=== PATIENT | male | born 1975 ===

== ENCOUNTER 2017-09-05 14:20 | Observation (INO) | payer MEDICAID, OTHER ==
--- NOTE | 2017-09-05 14:36 | ED PDOC ---
Arrival/HPI - General Time Seen by Provider: 09/05/17 14:24 Historian: Patient - History of Present Illness Narrative History of Present Illness (Text): 09/05/17 14:36 This 42 yo male with pmh ESRD, DM 2, HTN, obesity, on Hemodialysis, presents to this ED c/o right lower back pain x 1 day. Patient denies trauma, weakness, paresthesias, GI/ incontinence, saddle anesthesia, urinary retention, fever, sob, cp, rectal bleeding, or abnormal gait. Last Hemodialysis was early today Time/Duration: Other (see hpi) Context: Home Past Medical History - Provider Review Nursing Documentation Reviewed: Yes Family/Social History - Physician Review Nursing Documentation Reviewed: Yes Family/Social History: Other (noncontributory) Allergies/Home Meds Allergies/Adverse Reactions: Allergies Iodinated Contrast- Oral and IV Dye Allergy (Verified 09/05/17 14:53) ANGIOEDEMA Home Medications: Home Meds Medication Instructions Recorded Confirmed Atorvastatin [Lipitor] 40 mg PO DAILY 09/05/17 09/05/17 B Complex W-C No.20/Folic Acid 1 mg PO DAILY 09/05/17 09/05/17 [Virt-Caps Softgel] Calcitriol 0.25 mcg PO DAILY 09/05/17 09/05/17 Carvedilol [Coreg] 25 mg PO BID 09/05/17 09/05/17 Furosemide [Lasix] 80 mg PO DAILY 09/05/17 09/05/17 Hydralazine HCl 100 mg PO TID 09/05/17 09/05/17 Linagliptin [Tradjenta] 5 mg PO DAILY 09/05/17 09/05/17 amLODIPine [Norvasc] 10 mg PO DAILY 09/05/17 09/05/17 Review of Systems - Review of Systems Constitutional: Normal. absent: Fatigue, Weight Change, Fevers Eyes: Normal ENT: Normal Respiratory: Normal. absent: SOB, Cough, Sputum, Wheezing Cardiovascular: Normal. absent: Chest Pain, Palpitations Gastrointestinal: Normal. absent: Abdominal Pain, Nausea, Vomiting Genitourinary Male: Normal Musculoskeletal: Back Pain Skin: Normal. absent: Rash Neurological: Normal. absent: Headache, Dizziness, Focal Weakness, Gait Changes , Speech Changes, Facial Droop Endocrine: Normal Hemo/Lymphatic: Normal Psychiatric: Normal Physical Exam Vital Signs Temp Pulse Resp BP Pulse Ox 09/05/17 16:20 72 18 123/78 98 09/05/17 14:53 98 F 81 18 123/67 98 Temperature: Afebrile Blood Pressure: Normal Pulse: Regular Respiratory Rate: Normal Appearance: Positive for: Well-Appearing, Non-Toxic, Comfortable Pain Distress: None Mental Status: Positive for: Alert and Oriented X 3 - Systems Exam Head: Present: Atraumatic, Normocephalic Pupils: Present: PERRL Extroacular Muscles: Present: EOMI Conjunctiva: Present: Normal Mouth: Present: Moist Mucous Membranes Neck: Present: Normal Range of Motion Respiratory/Chest: Present: Clear to Auscultation, Good Air Exchange, Tender to Palpation. No: Respiratory Distress, Accessory Muscle Use Cardiovascular: Present: Regular Rate and Rhythm, Normal S1, S2. No: Murmurs Abdomen: Present: Normal Bowel Sounds. No: Tenderness, Distention, Peritoneal Signs Back: Present: Normal Inspection Upper Extremity: Present: Normal Inspection. No: Cyanosis, Edema Lower Extremity: Present: Normal Inspection. No: Edema Neurological: Present: GCS=15, CN II-XII Intact, Speech Normal Skin: Present: Warm, Dry, Normal Color. No: Rashes Psychiatric: Present: Alert, Oriented x 3, Normal Insight, Normal Concentration Medical Decision Making ED Course and Treatment: 09/05/17 20:53 I spoke with Merchant Tailor Nakul. I reviewed case with him for intractable lower back pain. He stated Dr. Villalobos is next. 09/05/17 20:[address] Villalobos regarding patient reporting lower back pain, labs, and CT scan result. I told Dr. Villalobos patient continues with back pain despite pain medication. I recommended observation for intractable back pain. Dr. Villalobos agreed with plan for observation. Patient agreed with plan for observation. Re-evaluation Time: 20:54 Reassessment Condition: Re-examined, Improving,but remains with symptoms - Lab Interpretations Lab Results: 09/05/17 20:20 09/05/17 20:20 Lab Results 09/05/17 20:20: Sodium 139, Potassium 4.4, Chloride 94 L, Carbon Dioxide 33, Anion Gap 17, BUN 30 H, Creatinine 3.9 H, Est GFR ( Amer) 20, Est GFR ( Non-Af Amer) 17, Random Glucose 167 H, Calcium 9.3, Total Bilirubin 0.4, AST 29 , ALT 26, Alkaline Phosphatase 107, Total Protein 7.8, Albumin 4.2, Globulin 3.7 , Albumin/Globulin Ratio 1.1 09/05/17 20:20: WBC 13.5 H, RBC 3.14 L, Hgb 9.5 L, Hct 30.3 L, MCV 96.5, MCH 30.3, MCHC 31.4, RDW 15.9 H, Plt Count 318, MPV 10.4, Gran % 62.0, Lymph % (Auto ) 23.0, [place] % (Auto) 9.2 H, Eos % (Auto) 4.9, Baso % (Auto) 0.9, Gran # 8.37 H , Lymph # (Auto) 3.1, [place] # (Auto) 1.2 H, Eos # (Auto) 0.7, Baso # (Auto) 0.12 I have reviewed the lab results: Yes Interpretation: Abnormal lab values - RAD Interpretation Narrative RAD Interpretations (Text): 09/05/17 16:38 PROCEDURE: CT Lumbar Spine without contrast FINDINGS: VERTEBRAE: Unremarkable. No fracture. Normal alignment. DISCS/SPINAL CANAL/NEURAL FORAMINA: L1-2: Chaim at the spinal canal without canal stenosis primarily a function of hypertrophy of ligamentum flavum posterior. L2-3: Canal stenosis primarily a function of annular bulge, hypertrophy of the ligamentum flavum posterior element hypertrophic degenerative. L3-4: Spinal stenosis without focal herniated disc. L4-5: Spinal stenosis without focal herniated disc. L5-S1: No focal abnormalities. Spondylolysis without evidence of spondylolisthesis. PARASPINAL SOFT TISSUES: Unremarkable. OTHER FINDINGS: None. IMPRESSION: Spina canal stenosis L3-4, L4-5 and to lesser L2-3. . Additional benign and/or incidental findings described above. 09/05/17 16:38 Chest PA and lateral FINDINGS: LUNGS: No active pulmonary disease. PLEURA: No significant pleural effusion identified. No pneumothorax apparent. CARDIOVASCULAR: Normal. OSSEOUS STRUCTURES: No significant abnormalities. VISUALIZED UPPER ABDOMEN: Normal. OTHER FINDINGS: None. IMPRESSION: No active disease. Radiology Orders: 09/05/17 15:12 LUMBAR SPINE W/O CONTRAST [CT] Stat 09/05/17 15:21 CHEST TWO VIEWS (PA/LAT) [RAD] Stat 09/05/17 20:23 CHEST PORTABLE [RAD] Stat - EKG Interpretation Interpreted by ED Physician: Yes (NSR @ 69bpm. LVH. No ST changes) Type: 12 lead EKG Comparison: No previous EKG avail. - Medication Orders Current Medication Orders: Discontinued Medications Hydromorphone HCl (Dilaudid) 1 mg IVP STAT STA Stop: 09/05/17 18:25 Last Admin: 09/05/17 20:25 Dose: 1 mg MAR Pain Assessment Document 09/05/17 20:25 CNR (Rec: 09/05/17 20:25 CNR [id number]) Pain Reassessment Is this a pain reassessment? Yes Location Pain Location Body Site Back Description Description Constant IVP Administration Document 09/05/17 20:25 CNR (Rec: 09/05/17 20:25 CNR [id number]) Charges for Administration # of IVP Administrations 1 Ondansetron HCl (Zofran Odt) 4 mg PO STAT STA Stop: 09/05/17 15:14 Last Admin: 09/05/17 15:26 Dose: 4 mg Oxycodone/Acetaminophen (Percocet 5/325 Mg Tab) 1 tab PO STAT STA Stop: 09/05/17 15:14 Last Admin: 09/05/17 15:26 Dose: 1 tab MAR Pain Assessment Document 09/05/17 15:26 ETCHER HAND (Rec: 09/05/17 15:27 ETCHER HAND [id number]) Pain Reassessment Is this a pain reassessment? No Re-Assess: MAR Pain Assessment Document 09/05/17 16:26 ETCHER HAND (Rec: 09/05/17 16:34 ETCHER HAND [id number]) Pain Reassessment Is this a pain reassessment? Yes Presence of Pain Presence of Pain Yes Oxycodone/Acetaminophen (Percocet 5/325 Mg Tab) 1 tab PO STAT STA Stop: 09/05/17 16:37 Last Admin: 09/05/17 16:51 Dose: 1 tab MAR Pain Assessment Document 09/05/17 16:51 ETCHER HAND (Rec: 09/05/17 16:51 ETCHER HAND [id number]) Pain Reassessment Is this a pain reassessment? Yes Presence of Pain Presence of Pain Yes Disposition/Present on Arrival - Present on Arrival Any Indicators Present on Arrival: No History of DVT/PE: No History of Uncontrolled Diabetes: No Urinary Catheter: No History of Decub. Ulcer: No - Disposition Have Diagnosis and Disposition been Completed?: Yes Diagnosis: Intractable back pain Disposition: HOSPITALIZED Disposition Time: 21:00 Patient Problems: Current Active Problems Problem Status Onset Intractable back pain Acute Condition: STABLE Referrals: [facility] Bill Bang, [Non-Staff] - Follow up with primary
[2017-09-05] MEDS ORDERED: Oxycodone/Acetaminophen 5/325 mg Tab PO STA ×2 (15:13→16:36)
--- NOTE | 2017-09-05 16:14 | CT ---
PROCEDURE: CT Lumbar Spine without contrast HISTORY: Back Pain. No history of recent/ related trauma provided COMPARISON: None. TECHNIQUE: Axial computed tomography images were obtained of the lumbar spine without the use of intravenous contrast. Coronal and sagittal reformatted images were created and reviewed. Radiation dose: Total exam DLP = 1442.83 mGy-cm. This CT exam was performed using one or more of the following dose reduction techniques: Automated exposure control, adjustment of the mA and/or kV according to patient size, and/or use of iterative reconstruction technique. FINDINGS: VERTEBRAE: Unremarkable. No fracture. Normal alignment. DISCS/SPINAL CANAL/NEURAL FORAMINA: L1-2: Chaim at the spinal canal without canal stenosis primarily a function of hypertrophy of ligamentum flavum posterior. L2-3: Canal stenosis primarily a function of annular bulge, hypertrophy of the ligamentum flavum posterior element hypertrophic degenerative. L3-4: Spinal stenosis without focal herniated disc. L4-5: Spinal stenosis without focal herniated disc. L5-S1: No focal abnormalities. Spondylolysis without evidence of spondylolisthesis. PARASPINAL SOFT TISSUES: Unremarkable. OTHER FINDINGS: None. IMPRESSION: Spina canal stenosis L3-4, L4-5 and to lesser L2-3. . Additional benign and/or incidental findings described above.
--- NOTE | 2017-09-05 16:36 | RAD ---
HISTORY: cough COMPARISON: No prior. TECHNIQUE: Chest PA and lateral FINDINGS: LUNGS: No active pulmonary disease. PLEURA: No significant pleural effusion identified. No pneumothorax apparent. CARDIOVASCULAR: Normal. OSSEOUS STRUCTURES: No significant abnormalities. VISUALIZED UPPER ABDOMEN: Normal. OTHER FINDINGS: None. IMPRESSION: No active disease.
[2017-09-05] MEDS ORDERED: HYDROmorphone 1 mg/ml ISec IVP STA (18:24)
[2017-09-05 20:26] LABS: BASO # 0.12 K/mm3 (0.0-2.0); BASO % 0.9 % (0.0-3.0); EOS # 0.7 (0.0-0.7); EOS % 4.9 % (1.5-5.0); GRAN # 8.37 (1.4-6.5); HEMOGLOBIN 9.5 g/dL (14.0-18.0); LYMPH # 3.1 (1.2-3.4); MEAN CELL VOLUME 96.5 fl (80.0-105.0); MEAN CORPUSCULAR HEMOGLOBIN 30.3 pg (25.0-35.0); MEAN CORPUSCULAR HGB CONC 31.4 g/dl (31.0-37.0); MEAN PLATELET VOLUME 10.4 fl (7.0-11.0); MONO # 1.2 (0.1-0.6); MONO % 9.2 % (1.0-6.0); RBC 3.14 10^6/uL (3.5-6.1); RED CELL DISTRIBUTION WIDTH 15.9 % (11.5-14.5); WHITE BLOOD COUNT 13.5 10^3/ul (4.5-11.0)
[2017-09-05 20:36] LABS: ALB/GLOB RATIO 1.1 (1.1-1.8); ALBUMIN 4.2 g/dL (3.0-4.8); CALCIUM 9.3 mg/dL (8.4-10.5)
[2017-09-05] MEDS ORDERED: Oxycodone/Acetaminophen 5/325 mg Tab PO PRN (21:47)
[2017-09-05] MEDS ORDERED: Morphine 4 mg/ml ISec IVP PRN (21:47)
--- NOTE | 2017-09-05 21:59 | CP.PCM.HP ---
<Luis Miguel Hollis - Last Filed: 09/06/17 00:44> History of Present Illness - History of Present Illness History of Present Illness: CC: Low back pain Pt is a 42 yo M with PMH of ESRD on HD (MWF), glaucoma, right eye blindness, HTN , DM, and CHF presents to [facility] due to 1 day history of lower back pain. Pt states that he was at dialysis earlier today when mild back pain started. Pt finished HD, went home, and went to bed. When he tried to get out of bad he experienced sharp, "pounding" pain in his lower back. Pt states that he could not stand or walk due to the pain. Deep breaths also aggravated his lower back. Pt denies any bowel or bladder incontinence. Pt states that strength and sensation in his lower extremities and intact. Pt states that he had one instance in 2006 where he had similar back pain, but that episode was transient. Pt denies any recent injuries or illnesses. Pt denies CP, SOB, n/v/d , abdominal pain, fever, chills, YEE, or dizziness. PMH: ESRD on HD (MWF), glaucoma, right eye blindness, HTN, DM, and CHF Surg: Right eye shunt, left AV fistula, left retinal reattachment, cardiac catherization All: iodine, shellfish FHx: DM, HTN SH: Denied tobacco, EtOH, and illicit drug use PMD: Raymundo Present on Admission - Present on Admission Any Indicators Present on Admission: No Review of Systems - Review of Systems Review of Systems: 12 point ROS reviewed and is negative other than what is stated in HPI. Past Patient History - Past Social History Smoking Status: Never Smoked - CARDIAC Hx Cardiac Disorders: Yes Hx Hypertension: Yes - HEENT Hx HEENT Problems: Yes Hx Glaucoma: Yes - RENAL Hx Chronic Kidney Disease: Yes Hx Dialysis: Yes Type of Dialysis Access: fistula Date of Last Dialysis Treatment: 09/05/17 - ENDOCRINE/METABOLIC Hx Endocrine Disorders: Yes Hx Diabetes Mellitus Type 2: Yes - PSYCHIATRIC Hx Substance Use: No - SURGICAL HISTORY Hx Surgeries: Yes Hx Eye Surgery: Yes (right eye) Other/Comment: left arm fistula - ANESTHESIA Hx Anesthesia: Yes Hx Anesthesia Reactions: No Hx Malignant Hyperthermia: No Meds Home Medications: Home Medication List Medication Instructions Recorded Confirmed Type Cyclobenzaprine [Flexeril] 5 mg PO TID #15 tab 09/07/17 Rx Lidocaine 5% [Lidoderm] 1 ea TD DAILY #3 patch 09/07/17 Rx Allergies/Adverse Reactions: Allergies Allergy/AdvReac Type Severity Reaction Status Date / Time Iodinated Contrast- Oral and Allergy ANGIOEDEMA Verified 09/05/17 14:53 IV Dye shellfish derived Allergy RASH Verified 09/06/17 19:04 Physical Exam - Constitutional Appears: No Acute Distress - Eye Exam Eye Exam: Normal appearance Additional comments: left ptosis, crusting - ENT Exam ENT Exam: Normal Exam - Neck Exam Neck exam: Positive for: Normal Inspection - Respiratory Exam Respiratory Exam: Clear to Auscultation Bilateral. absent: Rales, Rhonchi, Wheezes - Cardiovascular Exam Cardiovascular Exam: RRR, +S1, +S2. absent: Diastolic murmur, Gallop, Rubs, Systolic Murmur - GI/Abdominal Exam GI & Abdominal Exam: Soft. absent: Distended, Guarding, Rebound, Tenderness - Extremities Exam Extremities exam: Positive for: normal inspection - Back Exam Back exam: muscle spasm (lumbar), paraspinal tenderness (lumbar). absent: vertebral tenderness - Neurological Exam Neurological exam: Alert, CN II-XII Intact, Oriented x3 Additional comments: positive straight leg raise b/l, positive lasegue b/l; LE strength 5/5, sensation intact - Psychiatric Exam Psychiatric exam: Normal Affect, Normal Mood - Skin Skin Exam: Dry, Intact, Normal Color, Warm Results - Vital Signs Recent Vital Signs: Last Vital Signs Temp 98 F 09/05/17 14:53 Pulse 72 09/05/17 16:20 Resp 18 09/05/17 16:20 BP 123/78 09/05/17 16:20 Pulse Ox 98 09/05/17 16:20 - Labs Result Diagrams: 09/05/17 20:20 09/05/17 20:20 Labs: Laboratory Results - last 24 hr 09/05/17 09/05/17 20:20 20:20 WBC 13.5 H RBC 3.14 L Hgb 9.5 L Hct 30.3 L MCV 96.5 MCH 30.3 MCHC 31.4 RDW 15.9 H Plt Count 318 MPV 10.4 Gran % 62.0 Lymph % (Auto) 23.0 [place] % (Auto) 9.2 H Eos % (Auto) 4.9 Baso % (Auto) 0.9 Gran # 8.37 H Lymph # (Auto) 3.1 [place] # (Auto) 1.2 H Eos # (Auto) 0.7 Baso # (Auto) 0.12 Sodium 139 Potassium 4.4 Chloride 94 L Carbon Dioxide 33 Anion Gap 17 BUN 30 H Creatinine 3.9 H Est GFR ( Amer) 20 Est GFR (Non-Af Amer) 17 Random Glucose 167 H Calcium 9.3 Total Bilirubin 0.4 AST 29 ALT 26 Alkaline Phosphatase 107 Total Protein 7.8 Albumin 4.2 Globulin 3.7 Albumin/Globulin Ratio 1.1 Assessment & Plan - Assessment and Plan (Free Text) Assessment: 42 yo M with PMH of ESRD on HD (MWF), glaucoma, right eye blindness, HTN, DM, and CHF admitted for intractable lower back pain. Plan: 1. Intractable lower back pain - Lumbar CT shows spinal canal stenosis L2-3, L3-4, L4-5 - Tylenol, Percocet, Morphine, Zofran prn - Flexeril prn 2. ESRD - Cr 3.9 - Electrolytes WNL - HD MWF - Cont to monitor 3. HTN - Norvasc - Hydralazine 4. DM - Linagliptin - Accucheck ACHS 5. H/o CHF - Coreg, Lasix GI/DVT PPx - Pepcid - SCDs Pt seen and discussed in detail with Dr. Villalobos. Andreas Hollis, PGY1 <Lula Villalobos - Last Filed: 09/08/17 06:42> Results - Vital Signs Recent Vital Signs: Last Vital Signs Temp 98.0 F 09/06/17 01:12 Pulse 70 09/06/17 01:12 Resp 18 09/06/17 01:12 BP 123/65 09/06/17 01:12 Pulse Ox 95 09/05/17 20:00 - Labs Result Diagrams: 09/07/17 08:00 09/07/17 08:00 Attending/Attestation - Attestation I have personally seen and examined this patient.: Yes I have fully participated in the care of the patient.: Yes I have reviewed all pertinent clinical information: Yes Notes (Text): 09/06/17 05:38 Patient was seen when he was in bed # 20 in the ER . Agree with history, physical examination, assessment and plan.
[2017-09-06 06:31] LABS: MEAN CELL VOLUME 95.7 fl (80.0-105.0); MEAN CORPUSCULAR HEMOGLOBIN 29.9 pg (25.0-35.0); MEAN CORPUSCULAR HGB CONC 31.3 g/dl (31.0-37.0); MEAN PLATELET VOLUME 10.2 fl (7.0-11.0); RBC 3.01 10^6/uL (3.5-6.1); RED CELL DISTRIBUTION WIDTH 15.9 % (11.5-14.5); WHITE BLOOD COUNT 12.7 10^3/ul (4.5-11.0)
[2017-09-06 07:08] LABS: CALCIUM 9.1 mg/dL (8.4-10.5)
--- NOTE | 2017-09-06 08:19 | RAD ---
HISTORY: admission COMPARISON: Earlier same day FINDINGS: LUNGS: No active pulmonary disease. PLEURA: No significant pleural effusion identified, no pneumothorax apparent. CARDIOVASCULAR: Mild to moderate cardiomegaly. OSSEOUS STRUCTURES: No significant abnormalities. VISUALIZED UPPER ABDOMEN: Normal. OTHER FINDINGS: None. IMPRESSION: No active disease.
[2017-09-06] MEDS: Multivitamin With Minerals Tab PO SCH (09:41)
[2017-09-06] MEDS: Linagliptin [Tradjenta] 5 MG (HOME MED) PO SCH (10:39)
[2017-09-06 11:03] VITALS: BMI 40.1
[2017-09-06] MEDS: Insulin Reg-MEDIUM-Coverage SC SCH ×3 (12:39→22:03)
[2017-09-06 17:32] VITALS: O2SAT 97
[2017-09-06] MEDS: Lidocaine 5% Patch TD SCH (17:44)
--- NOTE | 2017-09-06 18:37 | CARD ---
APPROVED REPORT EKG Measurement Heart [id number] <Conclusion> Normal sinus rhythm Left ventricular hypertrophy with QRS widening Cannot rule out Septal infarct, age undetermined Abnormal ECG
[2017-09-07] MEDS ORDERED: Doxercalciferol 4 mcg/2 ml Inj IVP ONE (06:46)
[2017-09-07] MEDS ORDERED: Darbepoetin Alfa 40 mcg/ml Inj IVP ONE (06:47)
[2017-09-07 07:27] VITALS: PULSE 75; RESP 18; TEMP 98.4
[2017-09-07] MEDS: Insulin Reg-MEDIUM-Coverage SC SCH ×2 (08:11→12:56)
[2017-09-07 08:28] LABS: HEMOGLOBIN 8.8 g/dL (14.0-18.0); MEAN CELL VOLUME 92.8 fl (80.0-105.0); MEAN CORPUSCULAR HEMOGLOBIN 30.3 pg (25.0-35.0); MEAN CORPUSCULAR HGB CONC 32.7 g/dl (31.0-37.0); MEAN PLATELET VOLUME 10.6 fl (7.0-11.0); RBC 2.9 10^6/uL (3.5-6.1); RED CELL DISTRIBUTION WIDTH 15.6 % (11.5-14.5); WHITE BLOOD COUNT 12.6 10^3/ul (4.5-11.0)
[2017-09-07 08:35] LABS: ALB/GLOB RATIO 1.2 (1.1-1.8); ALBUMIN 3.8 g/dL (3.0-4.8); CALCIUM 8.7 mg/dL (8.4-10.5)
--- NOTE | 2017-09-07 10:25 | CP.PCM.CON ---
History of Present Illness - History of Present Illness History of Present Illness: pt is seen and examined, full consult is dictated #[id number] seen in hd, uf goal is 5 lit 1.esrd 2.anemia 3.htn 4.dm, 5.lower back pain sec to spinal stenosis Past Patient History - Past Social History Smoking Status: Never Smoked - CARDIAC Hx Cardiac Disorders: Yes Hx Hypertension: Yes - PULMONARY Hx Respiratory Disorders: No - NEUROLOGICAL Hx Neurological Disorder: No - HEENT Hx HEENT Problems: Yes Hx Glaucoma: Yes - RENAL Hx Chronic Kidney Disease: Yes Hx Dialysis: Yes Type of Dialysis Access: fistula Date of Last Dialysis Treatment: 09/05/17 - ENDOCRINE/METABOLIC Hx Diabetes Mellitus Type 2: Yes - HEMATOLOGICAL/ONCOLOGICAL Hx Blood Disorders: Yes Hx Anemia: Yes - INTEGUMENTARY Hx Dermatological Problems: No - MUSCULOSKELETAL/RHEUMATOLOGICAL Hx Falls: Yes - GASTROINTESTINAL Hx Gastrointestinal Disorders: No - GENITOURINARY/GYNECOLOGICAL Hx Genitourinary Disorders: No - PSYCHIATRIC Hx Substance Use: No - SURGICAL HISTORY Hx Surgeries: Yes Hx Eye Surgery: Yes (right eye) Other/Comment: left arm fistula - ANESTHESIA Hx Anesthesia: Yes Hx Anesthesia Reactions: No Hx Malignant Hyperthermia: No Meds Home Medications: Home Medication List Medication Instructions Recorded Confirmed Type Cyclobenzaprine [Flexeril] 5 mg PO TID #15 tab 09/07/17 Rx Lidocaine 5% [Lidoderm] 1 ea TD DAILY #3 patch 09/07/17 Rx Allergies/Adverse Reactions: Allergies Allergy/AdvReac Type Severity Reaction Status Date / Time Iodinated Contrast- Oral and Allergy ANGIOEDEMA Verified 09/05/17 14:53 IV Dye shellfish derived Allergy RASH Verified 09/06/17 19:04 - Medications Medications: Current Medications Acetaminophen (Tylenol 325mg Tab) 650 mg PO Q6H PRN PRN Reason: Pain, Mild (1-3) Amlodipine Besylate (Norvasc) [address] [facility] Last Admin: 09/06/17 09:41 Dose: 10 mg Atorvastatin Calcium (Lipitor) [address] [facility] Last Admin: 09/06/17 09:41 Dose: 40 mg Calcitriol (Rocaltrol) 0.[address] [facility] Last Admin: 09/06/17 09:41 Dose: 0.25 mcg Carvedilol (Coreg) [address] [facility] Last Admin: 09/06/17 17:45 Dose: 25 mg Cyclobenzaprine HCl (Flexeril) [address] [facility] Last Admin: 09/06/17 17:44 Dose: 5 mg Famotidine (Pepcid) [address] [facility] Last Admin: 09/06/17 22:03 Dose: 20 mg Furosemide (Lasix) [address] [facility] Last Admin: 09/06/17 09:41 Dose: 80 mg Hydralazine HCl (Apresoline) [address] [facility] Last Admin: 09/06/17 17:45 Dose: 100 mg Insulin Human Regular (Humulin R Med) [address] [facility] PRN Reason: Protocol Last Admin: 09/07/17 08:11 Dose: Not Given Lidocaine (Lidoderm) [address] [facility] Last Admin: 09/06/17 17:44 Dose: 1 ea Multivitamins/Minerals (Therapeutic-M Tab) [address] [facility] Last Admin: 09/06/17 09:41 Dose: 1 tab Linagliptin [ Tradjenta] 5 Mg ( Home Med) [address] [facility] Last Admin: 09/06/17 10:39 Dose: Not Given Ondansetron HCl (Zofran Tab) 4 mg PO Q6H PRN PRN Reason: Nausea/Vomiting Oxycodone/Acetaminophen (Percocet 5/325 Mg Tab) 1 tab PO Q6H PRN PRN Reason: Pain, moderate (4-7) Stop: 09/08/17 21:48 Last Admin: 09/06/17 19:47 Dose: 1 tab Results - Vital Signs Recent Vital Signs: Last Vital Signs Temp 98.4 F 09/07/17 07:26 Pulse 75 09/07/17 07:26 Resp 18 09/07/17 07:26 BP 146/74 09/07/17 07:26 Pulse Ox 97 09/07/17 07:26 - Labs Result Diagrams: 09/07/17 08:00 09/07/17 08:00 Labs: Laboratory Results - last 24 hr 09/06/17 09/06/17 09/06/17 11:30 16:13 21:16 WBC RBC Hgb Hct MCV MCH MCHC RDW Plt Count MPV Sodium Potassium Chloride Carbon Dioxide Anion Gap BUN Creatinine Est GFR ( Amer) Est GFR (Non-Af Amer) POC Glucose (mg/dL) 214 H 208 H 171 H Random Glucose Calcium Phosphorus Magnesium Total Bilirubin AST ALT Alkaline Phosphatase Total Protein Albumin Globulin Albumin/Globulin Ratio 09/07/17 09/07/17 08:00 08:00 WBC 12.6 H RBC 2.90 L Hgb 8.8 L Hct 26.9 L MCV 92.8 MCH 30.3 MCHC 32.7 RDW 15.6 H Plt Count 309 MPV 10.6 Sodium 136 Potassium 4.5 Chloride 92 L Carbon Dioxide 31 Anion Gap 18 BUN 60 H Creatinine 7.0 H Est GFR ( Amer) 10 Est GFR (Non-Af Amer) 9 POC Glucose (mg/dL) Random Glucose 169 H Calcium 8.7 Phosphorus 5.7 H Magnesium 2.2 Total Bilirubin 0.4 AST 23 ALT 28 Alkaline Phosphatase 96 Total Protein 7.0 Albumin 3.8 Globulin 3.2 Albumin/Globulin Ratio 1.2
[2017-09-07] MEDS: Multivitamin With Minerals Tab PO SCH (12:59)
[2017-09-07] MEDS: Lidocaine 5% Patch TD SCH (13:02)
[2017-09-07 13:04] VITALS: BP 146/75
[2017-09-07] MEDS: Linagliptin [Tradjenta] 5 MG (HOME MED) PO SCH (13:10)
--- NOTE | 2017-09-07 21:59 | CP.PCM.DIS ---
<Lia Cunha - Last Filed: 09/07/17 21:50> Provider - Provider Date of Admission: 09/05/17 21:41 Attending physician: Keyona Ellis MD Primary care physician: Carol Fonseca MD Consults: Nephro: Elisa Time Spent in preparation of Discharge (in minutes): 35 Diagnosis - Discharge Diagnosis (1) Intractable back pain Status: Acute Priority: Medium Hospital Course - Lab Results Lab Results: Most Recent Lab Values WBC 12.6 10^3/ul (4.5-11.0) H 09/07/17 08:00 RBC 2.90 10^6/uL (3.5-6.1) L 09/07/17 08:00 Hgb 8.8 g/dL (14.0-18.0) L 09/07/17 08:00 Hct 26.9 % (42.0-52.0) L 09/07/17 08:00 MCV 92.8 fl (80.0-105.0) 09/07/17 08:00 MCH 30.3 pg (25.0-35.0) 09/07/17 08:00 MCHC 32.7 g/dl (31.0-37.0) 09/07/17 08:00 RDW 15.6 % (11.5-14.5) H 09/07/17 08:00 Plt Count 309 10^3/uL (120.0-450.0) 09/07/17 08:00 MPV 10.6 fl (7.0-11.0) 09/07/17 08:00 Gran % 62.0 % (50.0-68.0) 09/05/17 20:20 Lymph % (Auto) 23.0 % (22.0-35.0) 09/05/17 20:20 [place] % (Auto) 9.2 % (1.0-6.0) H 09/05/17 20:20 Eos % (Auto) 4.9 % (1.5-5.0) 09/05/17 20:20 Baso % (Auto) 0.9 % (0.0-3.0) 09/05/17 20:20 Gran # 8.37 (1.4-6.5) H 09/05/17 20:20 Lymph # (Auto) 3.1 (1.2-3.4) 09/05/17 20:20 [place] # (Auto) 1.2 (0.1-0.6) H 09/05/17 20:20 Eos # (Auto) 0.7 (0.0-0.7) 09/05/17 20:20 Baso # (Auto) 0.12 K/mm3 (0.0-2.0) 09/05/17 20:20 Sodium 136 mmol/L (132-148) 09/07/17 08:00 Potassium 4.5 mmol/L (3.6-5.0) 09/07/17 08:00 Chloride 92 mmol/L (98-107) L 09/07/17 08:00 Carbon Dioxide 31 mmol/L (21-33) 09/07/17 08:00 Anion Gap 18 (10-20) 09/07/17 08:00 BUN 60 mg/dL (7-21) H 09/07/17 08:00 Creatinine 7.0 mg/dl (0.8-1.5) H 09/07/17 08:00 Est GFR ( Amer) 10 09/07/17 08:00 Est GFR (Non-Af Amer) 9 09/07/17 08:00 POC Glucose (mg/dL) 171 mg/dL (65-110) H 09/06/17 21:16 Random Glucose 169 mg/dL (70-110) H 09/07/17 08:00 Calcium 8.7 mg/dL (8.4-10.5) 09/07/17 08:00 Phosphorus 5.7 mg/dL (2.5-4.5) H 09/07/17 08:00 Magnesium 2.2 mg/dL (1.7-2.2) 09/07/17 08:00 Total Bilirubin 0.4 mg/dL (0.2-1.3) 09/07/17 08:00 AST 23 U/L (17-59) 09/07/17 08:00 ALT 28 U/L (7-56) 09/07/17 08:00 Alkaline Phosphatase 96 U/L (38-126) 09/07/17 08:00 Total Protein 7.0 g/dL (5.8-8.3) 09/07/17 08:00 Albumin 3.8 g/dL (3.0-4.8) 09/07/17 08:00 Globulin 3.2 gm/dL 09/07/17 08:00 Albumin/Globulin Ratio 1.2 (1.1-1.8) 09/07/17 08:00 - Hospital Course Hospital Course: 42 yo M with PMH of ESRD on HD (MWF), glaucoma, right eye blindness, HTN, DM, and CHF who initially presented to [facility] due to 1 day history of lower back pain that initially started while he was at dialysis. Patient had Lumbar CT on admission which showed spinal canal stenosis L2-3, L3-4, L4-5. Patient did not have any weakness, numbness, or parasthesias; no bladder or bowel incontinence. Patient was treated with muscle relaxants and analgesics. Today, patient feels much better overall, and reports that he was able to walk around his room after getting the muscle relaxants. He denies any chest pain, shortness of breath, fever, chills, dysuria, urinary or bowel incontinence, focal numbness or weakness. Patient was given a prescription for flexeril and lidocaine patches. Patient was also given instructions for follow up. All questions were answered to his satisfaction, and he was discharged to home. Discharge Exam - Head Exam Head Exam: ATRAUMATIC, NORMOCEPHALIC - Eye Exam Eye Exam: EOMI, Normal appearance, PERRL Pupil Exam: NORMAL ACCOMODATION - ENT Exam ENT Exam: Mucous Membranes Moist - Neck Exam Neck exam: Full Rom, Normal Inspection - Respiratory Exam Respiratory Exam: Clear to PA & Lateral, NORMAL BREATHING PATTERN. absent: Rales, Rhonchi, Wheezes - Cardiovascular Exam Cardiovascular Exam: RRR, +S1, +S2 - GI/Abdominal Exam GI & Abdominal Exam: Normal Bowel Sounds, Soft. absent: Tenderness - Extremities Exam Extremities exam: full ROM, normal inspection - Back Exam Back exam: FULL ROM, muscle spasm, paraspinal tenderness. absent: vertebral tenderness - Neurological Exam Neurological exam: Alert, CN II-XII Intact, Normal Gait, Oriented x3, Reflexes Normal - Psychiatric Exam Psychiatric exam: Normal Affect, Normal Mood - Skin Skin Exam: Dry, Intact, Normal Color Discharge Plan - Discharge Medications Prescriptions: Cyclobenzaprine [Flexeril] 5 mg PO TID #15 tab Lidocaine 5% [Lidoderm] 1 ea TD DAILY #3 patch - Follow Up Plan Condition: STABLE Disposition: HOME/ ROUTINE Instructions: Back Pain (GEN) Additional Instructions: 1. Continue to take all medications as previously prescribed 2. Continue to take Flexiril 5mg three times daily for back pain; do not drive or operate heavy machinery while on Flexeril 3. Use the lidoderm patch as needed 4. Follow up with your primary care doctor within one week 5. For any new or worsening concerns, contact your PCP immediately or return to the ER Referrals: Carol Fonseca MD [Primary Care Provider] - <Keyona Ellis - Last Filed: 09/08/17 07:52> Provider - Provider Date of Admission: 09/05/17 21:41 Attending physician: Keyona Ellis MD Primary care physician: Carol Fonseca MD Hospital Course - Lab Results Lab Results: Most Recent Lab Values WBC 12.6 10^3/ul (4.5-11.0) H 09/07/17 08:00 RBC 2.90 10^6/uL (3.5-6.1) L 09/07/17 08:00 Hgb 8.8 g/dL (14.0-18.0) L 09/07/17 08:00 Hct 26.9 % (42.0-52.0) L 09/07/17 08:00 MCV 92.8 fl (80.0-105.0) 09/07/17 08:00 MCH 30.3 pg (25.0-35.0) 09/07/17 08:00 MCHC 32.7 g/dl (31.0-37.0) 09/07/17 08:00 RDW 15.6 % (11.5-14.5) H 09/07/17 08:00 Plt Count 309 10^3/uL (120.0-450.0) 09/07/17 08:00 MPV 10.6 fl (7.0-11.0) 09/07/17 08:00 Gran % 62.0 % (50.0-68.0) 09/05/17 20:20 Lymph % (Auto) 23.0 % (22.0-35.0) 09/05/17 20:20 [place]ding % (Auto) 9.2 % (1.0-6.0) H 09/05/17 20:20 Eos % (Auto) 4.9 % (1.5-5.0) 09/05/17 20:20 Baso % (Auto) 0.9 % (0.0-3.0) 09/05/17 20:20 Gran # 8.37 (1.4-6.5) H 09/05/17 20:20 Lymph # (Auto) 3.1 (1.2-3.4) 09/05/17 20:20 [place] # (Auto) 1.2 (0.1-0.6) H 09/05/17 20:20 Eos # (Auto) 0.7 (0.0-0.7) 09/05/17 20:20 Baso # (Auto) 0.12 K/mm3 (0.0-2.0) 09/05/17 20:20 Sodium 136 mmol/L (132-148) 09/07/17 08:00 Potassium 4.5 mmol/L (3.6-5.0) 09/07/17 08:00 Chloride 92 mmol/L (98-107) L 09/07/17 08:00 Carbon Dioxide 31 mmol/L (21-33) 09/07/17 08:00 Anion Gap 18 (10-20) 09/07/17 08:00 BUN 60 mg/dL (7-21) H 09/07/17 08:00 Creatinine 7.0 mg/dl (0.8-1.5) H 09/07/17 08:00 Est GFR ( Amer) 10 09/07/17 08:00 Est GFR (Non-Af Amer) 9 09/07/17 08:00 POC Glucose (mg/dL) 171 mg/dL (65-110) H 09/06/17 21:16 Random Glucose 169 mg/dL (70-110) H 09/07/17 08:00 Calcium 8.7 mg/dL (8.4-10.5) 09/07/17 08:00 Phosphorus 5.7 mg/dL (2.5-4.5) H 09/07/17 08:00 Magnesium 2.2 mg/dL (1.7-2.2) 09/07/17 08:00 Total Bilirubin 0.4 mg/dL (0.2-1.3) 09/07/17 08:00 AST 23 U/L (17-59) 09/07/17 08:00 ALT 28 U/L (7-56) 09/07/17 08:00 Alkaline Phosphatase 96 U/L (38-126) 09/07/17 08:00 Total Protein 7.0 g/dL (5.8-8.3) 09/07/17 08:00 Albumin 3.8 g/dL (3.0-4.8) 09/07/17 08:00 Globulin 3.2 gm/dL 09/07/17 08:00 Albumin/Globulin Ratio 1.2 (1.1-1.8) 09/07/17 08:00 Attending/Attestation - Attestation I have personally seen and examined this patient.: Yes I have fully participated in the care of the patient.: Yes I have reviewed all pertinent clinical information, including history, physical exam and plan: Yes Notes (Text): 09/07/17 42 year old male with past medical history of ESRD on HD who presented with intractable back pain. CT lumbar spine showed spinal canal stenosis L2-3, L3-4, L4-5. He was started on flexeral and lidoderm patch. His back pain has improved. He was seen by PT and able to ambulate. Patient is discharged home to follow up with his pmd. Follow up with director informatics for dialysis. Keyona Ellis MD Hospitalist.
--- NOTE | 2017-09-08 11:29 | CON ---
DATE: 09/07/2017 RENAL CONSULTATION LOCATION: The patient is located in [facility], room 364, bed 2. REQUESTED BY: Dr. Keyona Ellis. REASON FOR CONSULTATION: End-stage renal disease, continuation of the hemodialysis and lower back pain. HISTORY OF PRESENT ILLNESS: Mr. Cardenas is 42-year-old, obese, male with past medical history significant for longstanding diabetes, hypertension, obesity, endstage renal disease, diabetic retinopathy, status post laser treatment and right eye is blind with poor vision in the left, who is on hemodialysis for the last 1 year, who was presented to the emergency room with the chief complaint of severe lower back pain and unable to move his legs. The patient claims he has a history of a spinal stenosis about 10 years ago diagnosed and the patient was brought in to the emergency room for further management. The patient is seen and examined during dialysis. The patient is feeling much better after muscle relaxant and pain medications. Denies any chest pain, palpitation. Denies any fever or cough. Denies any abdominal pain. Denies any nausea, vomiting or diarrhea. Denies any swelling of the legs, denies any skin ulcers in the legs. PAST MEDICAL HISTORY: Significant for the longstanding hypertension, diabetes, hyperlipidemia, obesity, diabetic retinopathy, endstage renal disease, on hemodialysis 3 times a week. PAST SURGICAL HISTORY: Status post left upper extremity AV fistula placement and right eye is blind. ALLERGIES: ALLERGIC TO IODINE CONTRAST, SHELLFISH. SOCIAL HISTORY: Denies any smoking, alcohol or drugs. FAMILY HISTORY: Not significant. He has a very supportive family. CURRENT MEDICATIONS: Include as follows: Hydralazine 100 mg p.o. t.i.d., Aranesp 40 mcg IV once, Coreg 25 mg p.o. b.i.d., Flexeril 5 mg p.o. t.i.d., Hectorol 4 mcg IV push x1, Humulin R for sliding scale, Lasix 80 mg p.o. x1, Lidoderm patch, Tradjenta 5 mg daily, Lipitor 40 mg p.o. daily, Norvasc 10 mg daily, Pepcid 20 mg p.o. daily, Percocet 1 tablet every 6 hours p.r.n., multivitamin 1 tablet daily, Tylenol and Zofran. REVIEW OF SYSTEMS: Significant for severe lower back pain and difficulty to ambulate with the pain. All other review of systems are reviewed and are negative. PHYSICAL EXAMINATION: VITAL SIGNS: Blood pressure 146/74, pulse 75, respirations 18, temperature 98.4, sats 97%, height 6 feet and weight is 296 pounds, BMI 40.1. GENERAL: Mr. Cardenas is 42-year-old obese, male, well built, well nourished, not in distress. HEENT: Right eye is blind, left eye with poor vision. Conjunctivae pink, sclerae anicteric. Tongue is moist. Trachea is midline. LUNGS: Symmetric on both sides. Bilateral breath sounds are present, clear on auscultation. CARDIOVASCULAR: [place] at the fifth intercostal space, midclavicular line. S1 and S2 audible. No murmur, gallop. ABDOMEN: Normal in appearance, soft, tympanic. No guarding, no rigidity, no hepatosplenomegaly. CENTRAL NERVOUS SYSTEM: The patient is alert, awake, oriented x3, nonfocal neuro examination. Cranial nerves II through XII grossly intact. Sensory and motor system is within normal limits. EXTREMITIES: No cyanosis, no clubbing, no edema. Right eye is blind. LABORATORY DATA: As of 09/06/2017, WBC 12.2, hemoglobin 9, hematocrit 28.8, platelets 308. Sodium 139, potassium 4.4, chloride 93, CO2 of 35, BUN 39, creatinine 4.9, glucose 185, calcium 9.1. As of 09/07/2017, WBC 12.6, hemoglobin 8.8, hematocrit is 26.9, platelets 309. Sodium 136, potassium 4.5, chloride 92, CO2 of 31, BUN 60, creatinine 7, glucose 169, calcium 8.7, phosphorus 5.7, magnesium 2.2, total bilirubin 0.4, AST 23, ALT 28, alkaline phosphatase 96, total protein 7, albumin is 3.8. Other reports: CT of the lumbar sacral spine as of 09/05/2014, impression: Spinal canal stenosis at L3, L4, L5, and to a lesser at L2, L3. Additional benign and incident findings. Chest x-ray as of 09/05/2017, no active disease. ASSESSMENT: In summary, Mr. Cardenas is a 42-year-old middle-aged male with past medical history significant for longstanding diabetes, hypertension, hyperlipidemia, status post cardiac catheterization about 6 months ago, end-stage renal disease, on hemodialysis, diabetic retinopathy with right eye is blind, was admitted with spinal stenosis in the past, who was admitted with sudden onset of severe low back pain after dialysis when he was sleeping on Sunday afternoon and unable to get up and severe pain and the patient was brought to the emergency room for further management and CT scan of the spine consistent with severe spinal stenosis. 1. Endstage renal disease, continue hemodialysis 3 times a week. The patient was seen and examined during dialysis, UF goal was about 5 L. 2. Anemia secondary to renal failure, continue Aranesp 40 mcg subcu x1 and continue Mircera as an outpatient at [facility] and follow up CBC as per the protocol. 3. Spinal stenosis, continue muscle relaxant and analgesics as per the primary team. 4. Hypertension, blood pressure is stable, continue Coreg, hydralazine and amlodipine and continue Lasix. 5. Hyperlipidemia. Continue Lipitor 40 mg p.o. at bedtime. 6. Type 2 diabetes. Continue Tradjenta 5 mg p.o. daily and also continue Nephrocaps. We will follow with you. Discontinue calcitriol as the patient is on IV vitamin D. Tolerating UF 5 liters. Advised the patient to watch fluid intake. Thank you for allowing me to participate in your patient's care. Karuna Gracia MD
== END 2017-09-07 13:55 | disposition home or self-care (01) ==
LOC: ED 14:20 → ERH 21:41 → 3RNO 23:14
PROVIDERS: ADMIT Internal Medicine; ATTEND Internal Medicine
DX: M48.061 Spinal stenosis, lumbar region without neurogenic claudication (principal); N18.6 End stage renal disease; I13.2 Hypertensive heart and chronic kidney disease with heart failure and with stage 5 chronic kidney disease, or end stage renal disease; E11.22 Type 2 diabetes mellitus with diabetic chronic kidney disease; I50.9 Heart failure, unspecified; H54.61 Unqualified visual loss, right eye, normal vision left eye; H40.9 Unspecified glaucoma; D63.1 Anemia in chronic kidney disease; E11.319 Type 2 diabetes mellitus with unspecified diabetic retinopathy without macular edema; E78.5 Hyperlipidemia, unspecified; E66.9 Obesity, unspecified; Z68.41 Body mass index [BMI] 40.0-44.9, adult; Z99.2 Dependence on renal dialysis; Z79.84 Long term (current) use of oral hypoglycemic drugs
CPT/HCPCS: 36415; 71045; 71046; 72131; 80048; 80053; 82948; 83735; 84100; 85025; 85027; 93005; 96374; 97116; 97161; 97530; 99285; G0378; G8978; G8979; J0881; J1170; J1270; J2270

== ENCOUNTER 2017-12-10 11:40 | Emergency (ER) | payer MEDICARE, OTHER ==
[2017-12-10 11:40] VITALS: BMI 40.1
[2017-12-10 11:58] VITALS: RESP 18; O2SAT 98
--- NOTE | 2017-12-10 12:29 | ED PDOC ---
Arrival/HPI - General Historian: Patient <Laura Massey - Last Filed: 12/10/17 16:26> <Oneil Ribera DO - Last Filed: 12/11/17 07:50> - General Chief Complaint: Chest Pain Time Seen by Provider: 12/10/17 11:44 - History of Present Illness Narrative History of Present Illness (Text): 42 year old Male presents with chest pain that started today at 9:35 am. He was getting dialysis done at [facility] and reports feeling a throbbing pressure like pain that moved from left to right. He also reports nausea, headache, pressure like left arm pain, shortness of breath, and heart palpitations. He described the headache as an occipital pressure like pain. Nothing made the pain better or worse. He denies any cough, wheeze, swollen lower extremity, vomiting. He reports having this kind of pain in June 2016 during dialysis and had a cardiac catherization and echocardiogram perfomed at [facility]. Patient was given aspirin when he arrived at the emergency department and reports improving pain. 12/10/17 12:24 (Laura Massey) Past Medical History - Provider Review Nursing Documentation Reviewed: Yes - Cardiac Hx Cardiac Disorders: Yes Hx Hypertension: Yes - Pulmonary Hx Respiratory Disorders: No - Neurological Hx Neurological Disorder: No - HEENT Hx HEENT Disorder: Yes Hx Glaucoma: Yes - Renal Hx Renal Disorder: Yes Hx Dialysis: Yes Date of Last Dialysis Treatment: 09/05/17 - Endocrine/Metabolic Hx Diabetes Mellitus Type 2: Yes - Hematological/Oncological Hx Blood Disorders: Yes Hx Anemia: Yes - Integumentary Hx Dermatological Disorder: No - Musculoskeletal/Rheumatological Hx Falls: Yes - Gastrointestinal Hx Gastrointestinal Disorders: No - Genitourinary/Gynecological Hx Genitourinary Disorders: No - Psychiatric Hx Psychophysiologic Disorder: No Hx Substance Use: No - Surgical History Hx Eye Surgery: Yes (right eye) Other/Comment: left arm fistula - Anesthesia Hx Anesthesia: Yes Hx Anesthesia Reactions: No Hx Malignant Hyperthermia: No <Laura Massey - Last Filed: 12/10/17 16:26> Family/Social History - Physician Review Nursing Documentation Reviewed: Yes Family/Social History: Diabetes, Hypertension Smoking Status: Never Smoked Hx Alcohol Use: Yes Frequency of alcohol use: Socially Hx Substance Use: No <Laura Massey - Last Filed: 12/10/17 16:26> Allergies/Home Meds <Laura Massey - Last Filed: 12/10/17 16:26> <Oneil Ribera DO - Last Filed: 12/11/17 07:50> Allergies/Adverse Reactions: Allergies Iodinated Contrast- Oral and IV Dye Allergy (Verified 09/05/17 14:53) ANGIOEDEMA shellfish derived Allergy (Verified 09/06/17 19:04) RASH Home Medications: Home Meds Medication Instructions Recorded Confirmed Atorvastatin [Lipitor] 40 mg PO DAILY 09/05/17 09/05/17 B Complex W-C No.20/Folic Acid 1 mg PO DAILY 09/05/17 09/05/17 [Virt-Caps Softgel] Calcitriol 0.25 mcg PO DAILY 09/05/17 09/05/17 Carvedilol [Coreg] 25 mg PO BID 09/05/17 09/05/17 Furosemide [Lasix] 80 mg PO DAILY 09/05/17 09/05/17 Hydralazine HCl 100 mg PO TID 09/05/17 09/05/17 Linagliptin [Tradjenta] 5 mg PO DAILY 09/05/17 09/05/17 amLODIPine [Norvasc] 10 mg PO DAILY 09/05/17 09/05/17 Review of Systems - Physician Review All systems were reviewed & negative as marked: Yes - Review of Systems Constitutional: Other (subjective fever) Eyes: Normal ENT: Normal Respiratory: SOB. absent: Cough, Sputum Cardiovascular: Chest Pain, Palpitations Gastrointestinal: Nausea. absent: Vomiting Skin: Normal Neurological: Headache Endocrine: absent: Diaphoresis <Laura Massey - Last Filed: 12/10/17 16:26> Physical Exam - Systems Exam Head: Present: Atraumatic, Normocephalic Pupils: Present: PERRL Conjunctiva: Present: Normal Mouth: Present: Moist Mucous Membranes Neck: Present: Normal Range of Motion Respiratory/Chest: Present: Clear to Auscultation Cardiovascular: Present: Regular Rate and Rhythm, Normal S1, S2, Peripheal Pulses Present Abdomen: Present: Normal Bowel Sounds Upper Extremity: Present: Normal Inspection, NORMAL PULSES Lower Extremity: Present: Normal Inspection, NORMAL PULSES Neurological: Present: GCS=15, Motor Func Grossly Intact, Normal Sensory Function Skin: Present: Warm, Dry Psychiatric: Present: Alert, Oriented x 3 <Laura Massey - Last Filed: 12/10/17 16:26> Vital Signs Temp Pulse Resp BP Pulse Ox 12/10/17 17:12 98 F 72 18 129/72 98 12/10/17 15:00 72 16 130/88 97 12/10/17 13:40 68 18 129/70 98 12/10/17 11:56 98.0 F 78 18 132/80 98 Medical Decision Making - Lab Interpretations I have reviewed the lab results: Yes Interpretation: Abnormal lab values (WBC=18.4) - EKG Interpretation Interpreted by ED Physician: Yes <Laura Massey - Last Filed: 12/10/17 16:26> <Oneil Ribera DO - Last Filed: 12/11/17 07:50> ED Course and Treatment: Impression: 42 year old male presents to emergency department with chest pain that started 3 hours ago. Assessment: Acute Coronory Syndrome DDx: Rule out pulmonary embolism, pneumonia, musculoskeletal, myocardial infarction, wretched esophagus (Boerhaave's). Plan: Given aspirin 325. Continue aspirin daily, continue carvedilol 25 mg BID , amlodipine 10 mg 1x daily, atorvastatin 40 mg Troponin x3, Chest X ray, Urine Analysis, CBC, EKG, UA Patient had elevated white blood count. Abdominal CT was performed to evaluate for reason for white blood cell count. Abdominal CT showed possible pyelonephritis. Patient will be evaluate for pyelonephritis. 12/10/17 12:34 12/10/17 12:45 12/10/17 12:47 12/10/17 12:49 12/10/17 16:24 (Laura Massey) 12/10/17 16:24 42 year old male presents to the Emergency department complaining of chest discomfort since 3 hours. In agreement with resident note, which includes further HPI details. Patient was seen and evaluated with resident, came up with plan and treatment together. 12/10/17 16:24 Patient expresses to leave against medical advice. I have explained extensively the consequences of doing such but patient persists on his request. Will respect patient's decision and advice patient to follow-up with PMD. Leaving Against Medical Advice (AMA): The patient is choosing to leave against medical advice. I have personally explained to the patient that choosing to do so may result in permanent bodily harm or . I have discussed at great length that without further evaluation and monitoring there may be unforeseen circumstances and/or deterioration causing permanent bodily harm or as a result of their choice. The patient is alert, oriented, and shows the mental capacity to make clear decisions regarding the patients health care at this time. The patient continues to wish to leave against medical advice. In light of the patients decision to leave against medical advice, follow-up has been arranged and the patient is aware of the importance to following up as instructed. The patient has been advised that they should return to the emergency room immediately if they change their mind at any time, or if their condition begins to change or worsen in any way. (Oneil Ribera DO) - Lab Interpretations Lab Results: 12/10/17 14:00 12/10/17 14:00 Lab Results 12/10/17 14:00: Sodium 137, Potassium 4.3, Chloride 92 L, Carbon Dioxide 33, Anion Gap 16, BUN 34 H, Creatinine 3.9 H, Est GFR ( Amer) 20, Est GFR ( Non-Af Amer) 17, Random Glucose 182 H, Calcium 8.0 L, Magnesium 1.8, Total Bilirubin 0.3, AST 32, ALT 33, Alkaline Phosphatase 99, Lactate Dehydrogenase 650, Total Creatine Kinase 103, Troponin I < 0.01, Total Protein 7.5, Albumin 4.1, Globulin 3.3, Albumin/Globulin Ratio 1.3 12/10/17 14:00: WBC 18.4 H D, RBC 3.25 L, Hgb 9.6 L, Hct 29.4 L, MCV 90.5, MCH 29.5, MCHC 32.7, RDW 15.4 H, Plt Count 318, MPV 10.6, Gran % 71.4 H, Lymph % ( Auto) 12.8 L, [place] % (Auto) 10.7 H, Eos % (Auto) 4.2, Baso % (Auto) 0.9, Gran # 13.15 H, Lymph # (Auto) 2.4, [place] # (Auto) 2.0 H, Eos # (Auto) 0.8 H, Baso # ( Auto) 0.17 - RAD Interpretation Narrative RAD Interpretations (Text): Chest X-ray: Dialated cardiomyopathy Abdominal CT: No evidence of nephrolithiasis or hydronephrosis. Mild infiltration changes seen within the left perinephric fat ; rule out recently passed calculus or infection. Note also made of minimal infiltration in the inferior aspect right perinephric fat. . Hepatomegaly. Several tiny calcifications right lobe liver as above. Cardiomegaly. Very tiny subpleural nodular density right lateral lung base likely postinflammatory. Followup the CT scan in 6-12 months could be performed to assess stability 12/10/17 12:55 12/10/17 16:21 (Laura Massey) Radiology Orders: 12/10/17 11:57 CHEST PORTABLE [RAD] Stat 12/10/17 14:39 ABD & PELVIS W/O PO OR IV CONT [CT] Stat - EKG Interpretation EKG Interpretation (Text): Normal sinus rhythm with left ventricular hypertrophy and QRS widening. Vent rate: 80 UT interval: 182 QRS: 116 QT/QTc: 416/479 12/10/17 12:50 (Laura Massey) - PA / [employer] ATT[employer]ER / Resident Statement SRI has reviewed & agrees with the documentation as recorded. SRI has examined the patient and agrees with the treatment plan. <Laura Massey - Last Filed: 12/10/17 16:26> - PA / OVER[employer] ELASTIC ATT[employer]ER / Resident Statement SRI has reviewed & agrees with the documentation as recorded. SRI has examined the patient and agrees with the treatment plan. - Scribe Statement The provider has reviewed the documentation as recorded by the Scribe <Oneil Ribera DO - Last Filed: 12/11/17 07:50> - Scribe Statement Nani Castaneda. All medical record entries made by the Scribe were at my direction and personally dictated by me. I have reviewed the chart and agree that the record accurately reflects my personal performance of the history, physical exam, medical decision making, and the department course for this patient. I have also personally directed, reviewed, and agree with the discharge instructions and disposition. (Oneil Ribera DO) Disposition/Present on Arrival - Present on Arrival Any Indicators Present on Arrival: No History of DVT/PE: No History of Uncontrolled Diabetes: No Urinary Catheter: No History of Decub. Ulcer: No History Surgical Site Infection Following: None - Disposition Have Diagnosis and Disposition been Completed?: Yes Disposition Time: 16:29 <Goldy Masseykrupa - Last Filed: 12/10/17 16:26> <Oneil Ribera DO - Last Filed: 12/11/17 07:50> - Disposition Diagnosis: Pyelonephritis Disposition: AGAINST MEDICAL ADVICE Condition: UNKNOWN Discharge Instructions (ExitCare): Kidney Infection (DC) Additional Instructions: PATRICIA MEJIA, thank you for letting us take care of you today. Your provider was Oneil Ribera DO. The emergency medical care you received today was directed at your acute symptoms. If you were prescribed any medication, please fill it and take as directed. It may take several days for your symptoms to resolve. Return to the Emergency Department if your symptoms worsen, do not improve, or if you have any other problems. Please contact your doctor or call one of the physicians/clinics you have been referred to that are listed on the Patient Visit Information form that is included in your discharge packet. Bring any paperwork you were given at discharge with you along with any medications you are taking to your follow up visit. Our treatment cannot replace ongoing medical care by a primary care provider outside of the emergency department. Thank you for allowing the [facility] team to be part of your care today. YOU SIGNED OUT AGAINST MEDICAL ADVICE. FOLLOW UP WITH YOUR PRIMARY DOCTOR SOON POSSIBLE. Prescriptions: Sulfamethoxazole/Trimethoprim [Bactrim DS 800 mg-160 mg] 1 tab PO BID #14 tab Referrals: Carol Fonseca MD [Family Provider] - Follow up with primary Forms: Nasty Gal (Welsh)
--- NOTE | 2017-12-10 13:39 | RAD ---
HISTORY: chest pain COMPARISON: Comparison chest dated 09/05/2017 FINDINGS: LUNGS: The central pulmonary vasculature is slightly increased. Rule out mild chronic compensated venous congestion. No focal consolidation. PLEURA: No significant pleural effusion identified, no pneumothorax apparent. CARDIOVASCULAR: Cardiomegaly. Note again made of endovascular stent in the left subclavian/axillary junction region. OSSEOUS STRUCTURES: No significant abnormalities. VISUALIZED UPPER ABDOMEN: Normal. OTHER FINDINGS: None. IMPRESSION: The central pulmonary vasculature is slightly increased. Rule out mild chronic compensated venous congestion. No focal consolidation. Cardiomegaly.
[2017-12-10 14:06] LABS: BASO # 0.17 K/mm3 (0.0-2.0); BASO % 0.9 % (0.0-3.0); EOS # 0.8 (0.0-0.7); EOS % 4.2 % (1.5-5.0); GRAN # 13.15 (1.4-6.5); GRAN % 71.4 % (50.0-68.0); HEMOGLOBIN 9.6 g/dL (14.0-18.0); LYMPH # 2.4 (1.2-3.4); LYMPH % 12.8 % (22.0-35.0); MEAN CELL VOLUME 90.5 fl (80.0-105.0); MEAN CORPUSCULAR HEMOGLOBIN 29.5 pg (25.0-35.0); MEAN CORPUSCULAR HGB CONC 32.7 g/dl (31.0-37.0); MEAN PLATELET VOLUME 10.6 fl (7.0-11.0); MONO % 10.7 % (1.0-6.0); RBC 3.25 10^6/uL (3.5-6.1); RED CELL DISTRIBUTION WIDTH 15.4 % (11.5-14.5); WHITE BLOOD COUNT 18.4 10^3/ul (4.5-11.0)
[2017-12-10 14:20] LABS: ALB/GLOB RATIO 1.3 (1.1-1.8); ALBUMIN 4.1 g/dL (3.0-4.8); ALT/SGPT 33 U/L (7-56); AST/SGOT 32 U/L (17-59); BLOOD UREA NITROGEN 34 mg/dL (7-21); GFR AFRICAN-AMERICAN 20; GFR NON-AFRICAN AMERICAN 17
[2017-12-10 14:28] LABS: TROPONIN I < 0.01 ng/mL
--- NOTE | 2017-12-10 14:51 | CARD ---
APPROVED REPORT EKG Measurement Heart [id number] ID [id number] <Conclusion> Normal sinus rhythm Left ventricular hypertrophy with QRS widening LAD PRWP Prolonged QTc
--- NOTE | 2017-12-10 16:03 | CT ---
PROCEDURE: CT Abdomen and Pelvis with Oral contrast. HISTORY: Left-sided abdominal pain COMPARISON: None. TECHNIQUE: Contiguous axial images of the abdomen and pelvis. . Coronal and Sagittal reformats generated. Radiation dose: Total exam DLP = 1558.08 mGy-cm. This CT exam was performed using one or more of the following dose reduction techniques: Automated exposure control, adjustment of the mA and/or kV according to patient size, and/or use of iterative reconstruction technique. FINDINGS: LOWER THORAX: The heart is mildly enlarged. No significant pericardial effusion. Lung bases clear with no focal consolidation effusion or basilar pneumothorax. There is a small approximately 2.5 mm nodular density seen in the right lower lobe near the anterolateral convexity that probably represents some postinflammatory sequela . Followup interval could be performed to assess stability. There is a small hiatal hernia with thickening of the distal esophagus. LIVER: Liver is enlarged measuring nearly 22 cm in CC dimension. The there are several tiny calcifications seen in the posterolateral aspect right lobe liver nonspecific. Rule out sequela of inflammation infection including prior exposure to granulomatous disease process. GALLBLADDER AND BILE DUCTS: Gallbladder is physiologically distended. No evidence of intraluminal gallbladder calculi. PANCREAS: The pancreas is somewhat is atrophic and fatty replaced. No pancreatic masses or collections. SPLEEN: Spleen exhibits normal size and attenuation pattern without mass collection or calcification. The ADRENALS: No adrenal lesions. KIDNEYS AND URETERS: Kidneys demonstrate relatively symmetric size. No evidence of nephrolithiasis or hydronephrosis. No evidence of ureteral calculi. . There are mild infiltration changes seen in the left perinephric fat nonspecific. Rule out sequela of recently passed calculus or infection. Clinical correlation recommended. . Minimal infiltration changes seen surrounding the inferior aspect right kidney. BLADDER: The urinary bladder is physiologically distended. No evidence of intraluminal urinary bladder calculi. REPRODUCTIVE: Prostate gland unremarkable. APPENDIX: Normal appendix. BOWEL: Evaluation of the bowel is somewhat limited due to the lack of oral contrast material. Stomach is incompletely distended. Visualized loops of small bowel exhibit normal contour and caliber. No evidence acute mechanical small bowel obstruction. Stool and air seen throughout the large bowel. PERITONEUM: Unremarkable. No fluid collection. No free air. Tiny fat containing umbilical hernia. LYMPH NODES: Unremarkable. No enlarged lymph nodes. VASCULATURE: Unremarkable. No aortic aneurysm. BONES: Mild multilevel degenerative spondylosis of the lower thoracic and lumbar spine. OTHER FINDINGS: None. IMPRESSION: No evidence of nephrolithiasis or hydronephrosis. Mild infiltration changes seen within the left perinephric fat ; rule out recently passed calculus or infection. Note also made of minimal infiltration in the inferior aspect right perinephric fat. . Hepatomegaly. Several tiny calcifications right lobe liver as above. Cardiomegaly. Very tiny subpleural nodular density right lateral lung base likely postinflammatory. Followup the CT scan in 6-12 months could be performed to assess stability.
[2017-12-10 17:14] VITALS: BP 129/72; PULSE 72; TEMP 98
== END 2017-12-10 17:14 | disposition left against medical advice (07) ==
LOC: ED 11:40
DX: N12 Tubulo-interstitial nephritis, not specified as acute or chronic (principal); I12.0 Hypertensive chronic kidney disease with stage 5 chronic kidney disease or end stage renal disease; E11.22 Type 2 diabetes mellitus with diabetic chronic kidney disease; N18.6 End stage renal disease; Z99.2 Dependence on renal dialysis